=== PATIENT | female | born 1980 | race African-American/Black ===

== ENCOUNTER 2021-01-07 07:56 | Outpatient (CLI) | payer BC, SELFPAY ==
[2021-01-07 08:55] LABS: Anion Gap 11 mmol/L (8-16); Blood Urea Nitrogen 8 mg/dL (7-17); Calcium 9.7 mg/dL (8.4-10.2); Carbon Dioxide 26 mmol/L (22-30); Chloride 102 mmol/L (98-107); Estimated Glomerular Filt Rate > 60; Glucose 146 mg/dL (65-110); Potassium 3.7 mmol/L (3.4-5.0); Sodium 139 mmol/L (137-145)
== END 2021-01-07 07:57 | disposition home or self-care (01) ==
LOC: ANHSURGERY 08:02
PROVIDERS: Anesthesiology; Visit Provider Obstetrics & Gynecology
DX: Z01.812 Encounter for preprocedural laboratory examination (principal); D21.9 Benign neoplasm of connective and other soft tissue, unspecified
CPT/HCPCS: 36415; 80048; 86850; 86900; 86901

== ENCOUNTER → 2021-01-08 00:52 | Outpatient (CLI) | payer BC, SELFPAY ==
[2021-01-08 18:27] LABS: SARS-CoV-2 RNA PCR Negative
== END ==
PROVIDERS: Visit Provider Obstetrics & Gynecology
DX: Z01.812 Encounter for preprocedural laboratory examination (principal); Z20.822 Contact with and (suspected) exposure to COVID-19
CPT/HCPCS: C9803; U0003; U0005

== ENCOUNTER 2021-01-11 14:51 | Inpatient (IN) | payer BC, SELFPAY ==
[2021-01-05 10:52] VITALS: BMI 51.3
[2021-01-11] VITALS (22 sets, daily range): BP systolic 72–135; BP diastolic 30–84; PULSE 96–125; RESP 16–24; TEMP 35.8–36.8; O2SAT 98–100; BMI 51.0; BMI 51.3
--- NOTE | ~2021-01-11 | CT_ITS ---
EXAMINATION: CT abdomen pelvis wo con DATE: 01/12/2021 20:33 INDICATION: Abdominal pain. TECHNIQUE: Computed tomography (CT) of the abdomen and pelvis was performed without intravenous contr ast. Automated exposure control and iterative reconstruction technique were employed. The dose-length product was 1491.20 mGy-cm. COMPARISON: None. FINDINGS: The visualized portions of the lung bases demonstrate moderate atelectasis in the lower lob es. There is a small right pneumothorax. The heart size is normal. No pericardial effusion. There is a central venous catheter with tip in right atrium. There is diffuse hepatic steatosis. Density in th e gallbladder may be sludge or stones. The gallbladder is normal in size. The spleen, pancreas, adren al glands, and kidneys are normal. There are no dilated loops of bowel. The appendix is not visualize d. There is a small volume of free intraperitoneal gas, consistent with recent surgery. There is gas in the extraperitoneal space of Retzius. There is fat stranding in the pelvis, consistent with edema and inflammation. There is a small volume of hematoma in the surgical bed from hysterectomy. There is mild thoracolumbar spondylosis. IMPRESSION: 1. Small volume of pelvic hematoma status post hysterectomy. 2. Small right pneumothorax. Reviewed, dictated and finalized at location A.
--- NOTE | ~2021-01-11 | XR_ITS ---
EXAMINATION: XR chest 1V portable DATE: 01/12/2021 00:36 INDICATION: Right chest pain worsens with inspiration TECHNIQUE: frontal view of the chest was obtained. COMPARISON: None FINDINGS: All streaky atelectasis at the perihilar left midlung zone. No other airspace opacities, pulmonary ed aleisha, pleural effusion or pneumothorax. The cardiomediastinal silhouette is normal. Visualized bones a nd soft tissues are unremarkable. IMPRESSION: 1. Mild streaky atelectasis in the left midlung zone. No other acute cardiopulmonary disease. Reviewed, dictated and finalized at location A. IMPRESSION: 1. Mild streaky atelectasis in the left midlung zone. No other acute cardiopulm onary disease.
--- NOTE | ~2021-01-11 | XR_ITS ---
EXAMINATION: XR chest 1V portable DATE: 01/12/2021 21:27 INDICATION: Right pneumothorax. TECHNIQUE: A single frontal view of the chest was obtained. COMPARISON: Chest single view at 12:26 PM FINDINGS: There is mild atelectasis in the mid and lower lung zones. No pleural effusion or pneumotho rax. The heart size is normal. A left upper extremity peripherally inserted central venous catheter ( PICC) is seen with tip in the proximal right atrium. IMPRESSION: 1. No visible pneumothorax. 2. Mild atelectasis in the mid and lower lung zones. Reviewed, dictated and finalized at location A.
--- NOTE | ~2021-01-11 | XR_ITS ---
XR chest 1V portable DATE: 01/14/2021 12:59 INDICATION: Chest pain with inspiration, mostly on the right side TECHNIQUE: Portable AP chest on 01/14/2021 at 1247 hours COMPARISON: 01/2021 portable AP chest FINDINGS: There is bilateral lower lung infiltrate and/or atelectasis. No pleural effusion or pulmonary vascular congestion or pneumothorax. Left upper extremity PIC catheter tip overlies the superior vena cava near the superior cavoatrial ju nction. IMPRESSION: Bilateral lower lung infiltrate and/or atelectasis Reviewed, dictated and finalized at location B.
--- NOTE | 2021-01-11 01:42 | PM.IMHP ---
H&P: HPI History of Present Illness Date/Time: 01/11/21 01:42 Chief Complaint: fibroids Narrative: Lobito is a 40yo who presents for ALLISON/BS for large fibroid uterus. Unable to do EMB due to fibroids obscuring canal. Periods are not particularly heavy for her, but she does have pressure and discomfort from the large uterus. Feels like it is growing. Us showed large fibroid uterus, with fibroid up to 14cm. Review of Systems Review of Systems: All systems reviewed & are unremarkable except as noted in HPI and below PMFSH Past Medical History Medical History (Updated 01/11/21 @ 01:46 by Taylor Hall MD) Hypertension Obesity, morbid, BMI 50 or higher Social History Social History Smoking status: Never smoker Alcohol intake: never Substance use: never Living arrangements: with family Sexual Orientation (if Verbalized by the Patient): Straight or Heterosexual Spiritual care concerns: No Meds Home Medications and Allergies Home Medications Medication Instructions Recorded Confirmed Type hydrochlorothiazide 25 mg PO DAILY 01/05/21 01/05/21 History Allergies Allergy/AdvReac Type Severity Reaction Status Date / Time No Known Allergies Allergy Verified 01/05/21 10:49 Exam Const: General: no acute distress Other: morbidly obese Resp: Effort & Inspection: normal respiratory effort Auscultation: clear to auscultation bilaterally Cardio: Rate: regular rate Rhythm: regular rhythm GI: GI Palp: Yes Soft to palpation Extrem: General: normal to inspection Assessment and Plan Assessment and plan (1) Leiomyoma: Code(s): D21.9 - Benign neoplasm of connective and other soft tissue, unspecified Status: Acute Assessment and Plan: COnsented for ALLISON/BS. Ovaries to be left in. Pt aware of increased risks due to her obesity and HTN. Probable vertical incision. Discussed RBA, questions answered, consented. Will proceed.
[2021-01-11] MEDS: ACETAMINOPHEN 500 MG TABLET 1000 MG PO (06:55)
[2021-01-11] MEDS: KETOROLAC 15 MG/ML VIAL (*BKC) IV PUSH (06:55)
--- NOTE | 2021-01-11 06:55 | WPDANESEPPF ---
Anes - Initial Pre Proc Eval Procedure: Operation Date: 01/11/21 07:30 Proposed Procedures p Total Abdominal Hysterectomy, Bilateral Salpingo oophorectomy - Taylor Hall MD Date/Time: 01/11/21 06:55 Surgeon: Taylor Hall MD Pre Op Diagnosis: Leiomyoma Patient Data Age: 40 Gender: F Height: 1.65 m Weight: 139 kg Last Vital Signs Temp 96.5 F L 01/11/21 06:37 Pulse 96 01/11/21 06:37 Resp 20 01/11/21 06:37 BP 135/84 01/11/21 06:37 Pulse Ox 100 01/11/21 06:37 Allergies Allergy/AdvReac Type Severity Reaction Status Date / Time No Known Allergies Allergy Verified 01/11/21 06:33 Home Medications Medication Instructions Recorded Confirmed Type hydrochlorothiazide 25 mg PO DAILY 01/05/21 01/11/21 History Patient hx anesthesia problems: none Family hx anesthesia problems: none [facility] Past Medical History Medical History (Updated 01/11/21 @ 01:46 by Taylor Hall MD) Hypertension Obesity, morbid, BMI 50 or higher Social History Social History Smoking status: Never smoker Alcohol intake: never Substance use: never Living arrangements: with family Sexual Orientation (if Verbalized by the Patient): Straight or Heterosexual Spiritual care concerns: No Anes - Eval Final PreProcedure Day of Procedure 01/11/21 06:55 Patient weight: super morbidly obese Heart: regular rate and rhythm Lungs: clear to auscultation Airway: Mallampati scale class III Neurological: alert and oriented Last oral intake: >/= 8 hours ASA classification: IV Emergent: no Anesthetic plan: proceed Anesthesia type and monitoring: general and standard monitoring Informed Consent: The patient's anesthetic plan and its attendant risks and benefits were discussed with the patient/family/POA. Questions were solicited and answers provided to the satisfaction of the patient/family/POA.
[2021-01-11] MEDS: LACTATED RINGERS 1,000 ML 30 ML IV CONT ×3 (07:00→15:29)
--- NOTE | 2021-01-11 07:29 | WPDHPUPDATE1 ---
History and Physical Update Update Date/Time: 01/11/21 07:29 History and Physical has been reviewed, including an updated exam of the patient. There are NO changes in the patient's condition. Risks, benefits, and alternatives have been discussed and questions answered. Patient agrees to proceed with procedure.
[2021-01-11] MEDS: ceFAZolin 3 GM/D5W 100 ML 100 ML IVPB ×2 (07:33→12:05)
[2021-01-11 11:19] LABS: Hematocrit 33.9 % (37.0-47.0); Hemoglobin 11.2 g/dL (12.0-15.0); Mean Corpuscular Hemoglobin 26.9 pg (26-34); Mean Corpuscular Volume 81.3 fl (80-100); Platelet Count Result 244 k/mm3 (150-375); Red Blood Count 4.17 M/mm3 (4.2-5.4); Red Cell Distribution Width 14.9 % (11.5-14.5); White Blood Count 6.3 K/mm3 (4.5-10.0)
--- NOTE | 2021-01-11 11:40 | SUR.OPER ---
1105- Blood started infusing per anesthesia, Dr. Ramon. Unit Verified and identified by Brittaney Spain RN and Nino Logan RN. Vital signs charted in Anesthesia chart.
--- NOTE | 2021-01-11 14:14 | W.PM.PROC2 ---
Procedure Note - Detailed Date of Procedure 01/11/21 Pre-op Diagnosis Leiomyoma Post-op Diagnosis other (many necrotic and cystic fibroids) Procedure Performed Total abdominal hysterectomy with bilateral salpingectomy and right oophorectomy. Surgeon Taylor Hall MD [employer] Pit Worker Valerie Morlaes MD and DORA Waite Anesthesia general Indications very large fibroid uterus with pelvic pressure Findings Very large uterus with multiple fibroids, many greater than 8cm. SOme cystic feeling. The largest fibroid reached up to the liver edge and the uterus was twisted 90 degrees. Description of Procedure The patient was taken to the operating room and placed in supine position. She received general anesthesia and a jackson catheter was placed. She was prepped and draped in sterile fashion, including a betadine vaginal prep. Due to the size of the uterus, a vertical incision was made from just below the umbilicus down to 2cm above the pubic symphysis. The incision was carried down sharply and with Bovie through the subcutaneous tissue and fascia. The rectus muscles were and the peritoneum was bluntly entered. The findings noted above were encountered. The fibroids distorted her normal anatomy severely. Due to the size and twisted position of the uterus, the incision was extended around the umbilicus and about 4cm above. This allowed us to exteriorize the uterus through the incision and untwist it to put it in somewhat anatomical position. Bilateral tubes and ovaries were noted to be normal. A normal liver and appendix were also felt and seen. The left round ligament was clamped, cut and suture ligated and the broad ligament was incised anteriorly and posteriorly, over the fibroids that it contained. Similarly, on the right, the round ligament was clamped, cut and suture ligated. The broad ligament was incised to the level it could be visualized. The left uteroovarian ligament was clamped, cut, and ligated, and the tube isolated from the ovary as well. At this point, Dr. Morales was called to assist. On the right, the uteroovarian ligament was clamped, cut and ligated as well. Due to bleeding which was not controlled by 3 figure of eight sutures on the ovary, the decision was made to remove the right ovary. After isolation and visualization of the ureter, the right infundibulopelvic ligament was clamped, cut, and ligated. At this point we skeletonized in the presumed area of the uterine vessels. On both sides we were able to locate and follow the ureter along its entire pelvic course. The bladder flap was created, but the bladder was densely adherent to a fibroid in the lower uterine segment. During mobilizing of the bladder off the fibroid, an inadvertent cystotomy was made. This cystotomy was used to then assist in locating the margins of the border to dissect it off of the fibroid and cervix. Due to inability to visualize deep in the pelvis because of the size of the uterus and its masses, we decided the course of action needed to be amputation of the fibroids and uterine tissue to obtain visibility. Using a combination of Bovie cautery in avascular areas of necrotic tissue, and clamping, cutting and ligation, we removed several of the larger fibroid sections. All of the fibroids appeared cystic and necrotic. Once a majority of the fibroid tissue was removed, we were able to visualize the pelvis and the cervix. The uterine arteries were noted and skeletonized bilaterally. They were then clamped, cut, and suture ligated. Using straight Marissa clamps, the tissue surrounding the cervix was sequentially clamped, cut, and ligated until the bottom of the cervix was noted. The cervix was then amputated and the cuff closed with a running locking suture of 0-vicryl. All pedicles were inspected. Several interrupted sutures were placed for hemostasis, taking care to avoid the ureters. The cystotomy was repaired in running layers with 3-0 vicryl
[2021-01-11] MEDS: HYDROmorphone HCL INJ (*CRX) 1 MG/ML SYR 0.25 MG IV PUSH ×4 (14:32→15:42)
--- NOTE | 2021-01-11 14:32 | SUR.OPER ---
1345- second unit of RBC transfusing, Rocio Day CRNA. Vital signs in anesthesia record. Verified and Identified by Brittaney Spain Rn and Melissa Carvalho RN.
[2021-01-11 14:46] LABS: Hematocrit 30.3 % (37.0-47.0); Hemoglobin 9.7 g/dL (12.0-15.0); Mean Corpuscular Hemoglobin 28.4 pg (26-34); Mean Corpuscular Volume 88.9 fl (80-100); Mean Platelet Volume 9.6 fl (7.4-10.4); Platelet Count Result 180 k/mm3 (150-375); Red Blood Count 3.41 M/mm3 (4.2-5.4); Red Cell Distribution Width 15.5 % (11.5-14.5); White Blood Count 20.4 K/mm3 (4.5-10.0)
[2021-01-11] MEDS: PHENYLEPHRINE 1,000 MCG/10 ML SYRINGE 100 MCG IV PUSH (14:48)
[2021-01-11] MEDS: LACTATED RINGERS 1,000 ML 999 ML IV CONT (14:53)
[2021-01-11 14:58] LABS: INR 1.5; Prothrombin Time 17.6 Seconds (11.1-14.7)
[2021-01-11 14:59] LABS: Partial Thromboplastin Time 25.9 SECONDS (22.3-36.8)
--- NOTE | 2021-01-11 15:55 | SUR.PHASEI ---
1430 DR OCASIO AT BEDSIDE- ORDERS RECEIVED FOR LABS. 1445 DR STEIN AT BEDSIDE- AWARE OF HYPOTENSION- ORDERS RECEIVED TO GIVE 1000ML LR BOLUS & GIVE PHENYLEPHRINE PRN. 1505 DR ARMSTRONG AT BEDSIDE- ASSESSING PT. AWARE OF CBC RESULTS. 1528 DR STEIN AT BEDSIDE- AWARE OF CBC, PT/INR, & PTT RESULTS.
[2021-01-11] MEDS: CLINDAMYCIN 600 MG/D5W 50 ML 600 MG/50 ML PIGGYBACK 100 MG IVPB (18:09)
[2021-01-11] MEDS: HYDROcodone/acetaminophen (*CRX) 10-325 MG TABLET 1 TAB PO (18:28)
[2021-01-11 18:31] LABS: Hematocrit 34.9 % (37.0-47.0); Hemoglobin 11.2 g/dL (12.0-15.0); Mean Corpuscular HGB Conc 32.1 g/dl (32-36); Mean Corpuscular Hemoglobin 28.4 pg (26-34); Mean Corpuscular Volume 88.4 fl (80-100); Mean Platelet Volume 10.2 fl (7.4-10.4); Platelet Count Result 233 k/mm3 (150-375); Red Blood Count 3.95 M/mm3 (4.2-5.4); Red Cell Distribution Width 15.2 % (11.5-14.5); White Blood Count 37.9 K/mm3 (4.5-10.0)
[2021-01-11 18:39] LABS: Estimated CRCL calculation 77 ml/min; Estimated Glomerular Filt Rate 60
--- NOTE | 2021-01-11 18:44 | ADMGEN ---
This patient, Lobito Martin, was admitted to IMU Room 200-01 on 01/11/21 at 1635. Patient/family oriented to hospital policies and general routines including ID bracelet, bed and alarms, visiting hours, pain management, procedures, bathroom and other care routines, personal items, smoking policy, room service/diet, and visiting hours. Information on how to activate the Rapid Response Team has been discussed. Patient/Family are encouraged to report perceived risks to care and to ask questions if they do not understand what they are told or what they should do.
[2021-01-11 19:13] LABS: Band Neutrophils Percent 7 % (0-6); Lymphocytes Absolute Manual 0.75 K/mm3 (1.1-4.5); Monocytes Absolute Manual 0.75 K/mm3 (0.1-0.90); Monocytes Percent Manual 2 % (3-9); Neutrophils Absolute Manual 36.38 K/mm3 (1.7-7.2); Neutrophils Percent Manual 89 % (46-73); Platelet Estimate Adequate (Adequate); Total Cells Counted 100
[2021-01-11 19:14] LABS: Poikilocytosis 1+ (NORMAL)
--- NOTE | 2021-01-11 20:14 | PC.NURSE ---
Spoke with Dr. Hall approx 194 to update on pt condition. Bolus is currently transfusing. Now going to do strict I&O for 2hrs and monitor BP. Will update accordingly.
--- NOTE | 2021-01-11 20:17 | PC.NURSE ---
1899 - Notified Dr Hall of pt's BP in 70's and 80's with HR in the 120's. No other signs or symptoms. Orders for 500 ml bolus of NS with 200 ml/hr following bolus.
[2021-01-11] MEDS: SODIUM CHLORIDE 0.9% IV 1,000 ML 200 ML IV CONT (20:19)
[2021-01-11] MEDS: SODIUM CHLORIDE 0.9% IV 1,000 ML 999 ML IV CONT ×2 (20:19→22:40)
[2021-01-11] MEDS: GENTAMICIN SULFATE INJ 450 MG in DEXTROSE 5% 100 ML 100 MG IVPB (20:23)
--- NOTE | 2021-01-11 20:32 | PC.NURSE ---
1814 - Dr Hall called to check on patient. Orders for NS 200 ml/hr given. She will call shift stacker to check on her again.
--- NOTE | 2021-01-11 21:50 | PC.NURSE ---
Addendum entered by Yael Escoto RN 01/12/21 00:49: This patient, Lobito Martin, was received from 200 on 01/11/21 at 2100. Patient/family oriented to unit policies and routines Original Note: This patient, Lobito Martin, was received from 200 on 01/11/21 at 2150. Patient/family oriented to unit policies and routines
[2021-01-11 22:34] LABS: Hemoglobin 9.5 g/dL (12.0-15.0)
[2021-01-11 22:44] LABS: Anion Gap 11 mmol/L (8-16); Blood Urea Nitrogen 13 mg/dL (7-17); Carbon Dioxide 18 mmol/L (22-30); Chloride 108 mmol/L (98-107); Estimated CRCL calculation 78 ml/min; Estimated Glomerular Filt Rate 60; Glucose 180 mg/dL (65-110); Potassium 5.5 mmol/L (3.4-5.0); Sodium 137 mmol/L (137-145)
[2021-01-11 22:45] LABS: INR 1.2; Lactic Acid Reflex 8.5 mmol/L (0.7-2.1); Prothrombin Time 14.8 Seconds (11.1-14.7)
[2021-01-12] VITALS (24 sets, daily range): BP systolic 98–135; BP diastolic 53–83; PULSE 108–131; RESP 16–34; TEMP 36.5–37.4; O2SAT 93–100
--- NOTE | 2021-01-12 | PC.NURSE ---
Patient complains of right chest pain, worse upon palpation and with deep breathing. Dr. Paez notified. Orders for EKG and CXR obtained. Patient refuses pain medication at this time. No acute distress noted. Respirations easy on room air.
--- NOTE | 2021-01-12 00:03 | ECG_ITS ---
Measurements Intervals [place] Rate: 118 P: 34 OR: 159 QRS: -7 QRSD: 75 T: 12 QT: 323 QTc: 454 Interpretive Statements SINUS TACHYCARDIA BORDERLINE R WAVE PROGRESSION, ANTERIOR LEADS BORDERLINE T WAVE ABNORMALITY- INFERIOR LEADS ABNORMAL ECG Electronically Signed On 01-12-2021 6:06:12 CDT by Óscar Rod D.O.
[2021-01-12] MEDS: SODIUM BICARBONATE 8.4% 150 MEQ in WATER, STERILE FOR INJECTION 950 ML 125 MEQ IV CONT ×2 (00:13→09:39)
[2021-01-12] MEDS: CLINDAMYCIN 600 MG/D5W 50 ML 600 MG/50 ML PIGGYBACK 100 MG IVPB ×2 (00:25→09:27)
--- NOTE | 2021-01-12 00:26 | PM.IMCN ---
Assessment and Plan Assessment and plan (1) Postoperative hemorrhagic shock: Qualifiers: Encounter type: initial encounter Qualified Code(s): T81.19XA - Other postprocedural shock, initial encounter Code(s): T81.19XA - Other postprocedural shock, initial encounter Status: Acute (2) History of total abdominal hysterectomy: Onset Date: 01/11/21 Code(s): Z90.710 - Acquired absence of both cervix and uterus Status: Acute Additional Plan The patient and postoperative hemorrhagic shock. Her hemodynamics status has stabilized after 3rd unit of packed red blood cells and a 3rd L of postoperative fluids. The patient had had a total of 8 L of isotonic fluids between intraoperative fluids and postoperative fluids. Patient has been moved to the ICU. Retail Manager In Training has been consulted. The patient did have significant lactic acidosis on labs however suspect that this is in part due to the blood sample being obtained from the IV catheter instead of from had direct venous draw. Will repeat lactic acid with a.m. labs. Repeat CBC and electrolyte panel been ordered. Central line was attempted but was unsuccessful. Please see procedure note. 45 minutes was spent in critical care activities in exclusion of procedures. This case had a high probability of a clinically significant, sudden, or life threatening deterioration of this patient's condition which required my full and direct attention, intervention and personal management. HPI Data of Consult Consult date: 01/11/21 Requesting Physician: Taylor Hall MD Primary Care Provider: PHYSICIAN NOT ON STAFF Consult Narrative Narrative: Lobito Martin is a 40 year old female with a past medical history of hypertension in uterine fibroids had a complicated total abdominal hysterectomy with bilateral salpingectomy and right oophorectomy with a large amount of blood loss 01/11/2021. The patient had been admitted to the IMU for close monitoring due to her large amount of blood loss. The patient had received 1 L fluid bolus and was part way through a 2nd L fluid bolus and had received 2 units of packed red blood cells. Nursing staff called me to notify me of the consult as the patient was hypotensive with blood pressures in the 70s. I recommended the patient be transferred to the ICU in that the comfort station supervisor be consulted. I moved patient to the ICU and attempted to place a femoral line but was not able to visualized the femoral vein due to body habitus. Her internal jugular jugular vein was small and collapsed quickly he was poorly visualized due to body habitus is well. Subsequently tried a right subclavian and could obtained flash of blood but could not maintain the flash as the needle was not long enough. Patient was given an additional 1.5 L of fluid bolus after which her brought pressures had actually stabilized. An additional 30 unit of packed red blood cells was ordered as stat H&H was obtained. Her hemoglobin did return to g lower than previous values. Her lactic acid returned at 8.5 but the blood was obtained from patient's IV catheter that had been placed earlier in the day and was slow to aspirate from the IV site. The patient had an estimated blood loss of 3 L due to her large uterus with many fibroids and significant blood supply. And she received 5 L of fluids with 2 units of blood given through the course of surgical procedure. Patient evidently had cystotomy which was repaired intraoperatively. Review of Systems Review of Systems: 12 systems were reviewed with pertinent positives and negatives per HPI. Except as documented in the HPI, all other systems were reviewed and are negative. [facility] Past Medical History Medical History (Updated 01/12/21 @ 00:42 by Ashanti Paez DO) Hypertension Obesity, morbid, BMI 50 or higher Surgical History Surgical History (Updated 01/12/21 @ 00:42 by Ashanti Paez DO) History of right oophorectomy (
[2021-01-12 01:33] LABS: Reflex Lactic Acid Yes or No Add Lactic
[2021-01-12 03:21] LABS: Hematocrit 22.6 % (37.0-47.0); Hemoglobin 7.6 g/dL (12.0-15.0); Mean Corpuscular HGB Conc 33.6 g/dl (32-36); Mean Corpuscular Hemoglobin 28.7 pg (26-34); Mean Corpuscular Volume 85.3 fl (80-100); Mean Platelet Volume 10.4 fl (7.4-10.4); Platelet Count Result 173 k/mm3 (150-375); Red Blood Count 2.65 M/mm3 (4.2-5.4); Red Cell Distribution Width 15.1 % (11.5-14.5); White Blood Count 26.2 K/mm3 (4.5-10.0)
[2021-01-12 03:31] LABS: INR 1.2
[2021-01-12 03:32] LABS: Partial Thromboplastin Time 27.7 SECONDS (22.3-36.8)
[2021-01-12 03:33] LABS: Anion Gap 6 mmol/L (8-16); Blood Urea Nitrogen 15 mg/dL (7-17); Calcium 6.6 mg/dL (8.4-10.2); Carbon Dioxide 19 mmol/L (22-30); Chloride 108 mmol/L (98-107); Estimated CRCL calculation 78 ml/min; Estimated Glomerular Filt Rate 60; Glucose 158 mg/dL (65-110); Potassium 4.5 mmol/L (3.4-5.0); Sodium 133 mmol/L (137-145)
[2021-01-12] MEDS: fentaNYL CITRATE INJ (*CRX) 100 MCG/2 ML VIAL 25 MCG IV PUSH ×2 (03:38→06:11)
--- NOTE | 2021-01-12 07:59 | PM.GYNPNOP ---
DENTAL ASSISTING INSTRUCTOR - A/P Assessment and plan (1) History of total abdominal hysterectomy: Onset Date: 01/11/21 Code(s): Z90.710 - Acquired absence of both cervix and uterus Status: Acute Assessment and Plan: increase fentanyl for pain control once H/H stable, will start lovenox for 4 weeks postop at increased risk of infection due to morbid obesity, excessive blood loss, long operating time. Will continue antibiotics. (2) Postoperative hemorrhagic shock: Qualifiers: Encounter type: initial encounter Qualified Code(s): T81.19XA - Other postprocedural shock, initial encounter Code(s): T81.19XA - Other postprocedural shock, initial encounter Status: Acute Assessment and Plan: Hgb 7.6- this is more in line with blood loss from surgery. suspect the 11.2 post op was incorrect. Will transfuse 2 more units. continue IVF. BPs improving, UOP 250cc/8 hours. Serial H and H. If count continues to drop, will do CT abdomen/pelvis to rule out active bleeding. Discussed entire POC with patient, RN, manager security and safety, and Dr. Morales. I can be reached at [phone] until 4pm today and then Dr Morales can be reached at [phone]. (3) Complication of cystostomy: Code(s): N99.518 - Other cystostomy complication Status: Acute Assessment and Plan: [place] in for 1 week, discussed with pt. Postoperative Procedures: Procedures Operation Date: 01/11/21 07:30 Actual Procedure Side Surgeon p Total Abdominal Hysterectomy, Bilateral Salpingectomy, Right Oophorectomy Bilateral Taylor Hall MD Time Spent With Patient Time: Total time spent is 30 min greater than 50% in coordination of care (as documented) at patient's floor/unit and/or counseling patient: Time with patient: 25 - 35 minutes DENTAL ASSISTING INSTRUCTOR- PN:Subj Post-Op Subjective Date/time seen: 01/12/21 07:59 Interval history: Lobito reports pain, mainly at site of central line attempts, but some abdominal. Exhausted. Transferred to ICU later yesterday for low BPs, after copious fluids and 1 more unit of blood UOP and BPs improved. Still tachycardic and relatively low BPs given her hypertension. Exam Const: General: acute distress Other: appears moderately uncomfortable Cardio: Rate: tachycardic GI: Other: appropriately tender, incision remains bandaged with no additional strikethrough since yesterday in PACU Urinary Catheter: Urinary Catheter: patent and draining and urine clear Neuro: General: oriented to person, oriented to place, oriented to time and moves all extremities Psych: Mental Status: mental status grossly normal Affect: normal affect DENTAL ASSISTING INSTRUCTOR - PN: Obj Data Vital Signs Vital Signs: Vital Signs - 24 hr 01/11/21 14:15 01/11/21 14:30 01/11/21 14:45 Temperature 98.3 F Pulse Rate 116 H 117 H 106 H Respiratory Rate 18 18 18 Blood Pressure 111/72 111/69 72/30 L Pulse Oximetry 100 100 100 01/11/21 15:00 01/11/21 15:15 01/11/21 15:30 Temperature Pulse Rate 103 H 105 H 111 H Respiratory Rate 18 16 16 Blood Pressure 113/77 110/75 113/72 Pulse Oximetry 100 100 100 01/11/21 15:45 01/11/21 16:00 01/11/21 16:15 Temperature 97.4 F L Pulse Rate 111 H 114 H 108 H Respiratory Rate 18 16 18 Blood Pressure 104/65 106/75 99/80 L Pulse Oximetry 100 100 100 01/11/21 16:35 01/11/21 16:40 01/11/21 16:50 Temperature 97.6 F 97.6 F Pulse Rate 110 H 109 H 118 H Respiratory Rate 18 16 Blood Pressure 97/70 L 105/65 Pulse Oximetry 100 99 98 01/11/21 17:20 01/11/21 17:50 01/11/21 18:20 Temperature 97.4 F L 97.6 F 97.5 F L Pulse Rate 125 H 124 H 125 H Respiratory Rate 22 H 20 20 Blood Pressure 99/72 L 101/63 90/51 L Pulse Oximetry 99 100 99 01/11/21 18:40 01/11/21 18:50 01/11/21 19:51 Temperature Pulse Rate 112 H Respiratory Rate Blood Pressure 83/50 L 79/54 L 74/34 L Pulse Oximetry 01/11/21 20:31 01/11/21 22:00 01/11/21 23:19 Temperature Pulse Rate 125 H Respiratory Rate 24 H Bloo
[2021-01-12] MEDS: LIDOCAINE HCL 1% PF INJ 5 ML VIAL INFILTRATE (08:30)
[2021-01-12] MEDS: MAGNESIUM SULFATE 3GM/D5W100ML 3 GM/100 ML BAG IVPB (09:23)
[2021-01-12] MEDS: HYDROcodone/acetaminophen (*CRX) 10-325 MG TABLET 1 TAB PO ×2 (09:33→17:35)
[2021-01-12] MEDS: fentaNYL CITRATE INJ (*CRX) 100 MCG/2 ML VIAL 50 MCG IV PUSH ×4 (09:46→22:24)
[2021-01-12 10:18] LABS: Gentamicin Random 2.8 ug/mL (5.0-12.0)
--- NOTE | 2021-01-12 11:17 | WPDANESPN ---
Anes - Prog Note Post-Op Date/Time: 01/12/21 11:17 Cardiovascular status: normal Respiratory status: normal Airway patency: baseline Mental status: baseline Post-Op hydration status: other (Management per ICU team, currently receiving pRBCs) Vital Signs: Last Vital Signs Temp 36.7 C 01/12/21 10:32 Pulse 116 H 01/12/21 10:32 Resp 25 H 01/12/21 10:32 BP 113/70 01/12/21 10:32 Pulse Ox 97 01/12/21 10:32 Pain Score (VAS): 08/18 I/O: Intake & Output 01/11/21 01/12/21 01/12/21 23:59 07:59 15:59 Intake Total 578 831 7891 Output Total 275 Balance 370 29 8423 Laboratory Tests 01/12/21 03:14 01/12/21 03:14 01/07/21 01/11/21 01/11/21 08:10 10:21 14:39 WBC 6.3 20.4 H RBC 4.17 L 3.41 L Hgb 11.2 L 9.7 L Hct 33.9 L 30.3 L MCV 81.3 88.9 D MCH 26.9 28.4 D MCHC 33.0 32.0 RDW 14.9 H 15.5 H Plt Count 244 180 MPV 10.0 9.6 Immature Gran % (Auto) Neut % (Auto) Lymph % (Auto) [place] % (Auto) Eos % (Auto) Baso % (Auto) Lymph # (Auto) [place] # (Auto) Eos # (Auto) Baso # (Auto) Abs Immat Gran (auto) Absolute Neuts (auto) Absolute Nucleated RBC Total Counted Neutrophils % (Manual) Band Neutrophils % Lymphocytes % (Manual) Monocytes % (Manual) Nucleated RBC % Abs Neuts (Manual) Abs Lymphs (Manual) Abs Monocytes (Manual) Platelet Estimate Poikilocytosis PT INR APTT Sodium Potassium Chloride Carbon Dioxide Anion Gap BUN Creatinine Estim Creat Clear Calc Estimated GFR Glucose Lactic Acid Calcium Magnesium Random Gentamicin Blood Type O Positive Antibody Screen TNP Crossmatch See Detail 01/11/21 01/11/21 01/11/21 14:39 18:25 18:25 WBC 37.9 H RBC 3.95 L Hgb 11.2 L Hct 34.9 L MCV 88.4 MCH 28.4 MCHC 32.1 RDW 15.2 H Plt Count 233 MPV 10.2 Immature Gran % (Auto) Not Reportable Neut % (Auto) Not Reportable Lymph % (Auto) Not Reportable [place] % (Auto) Not Reportable Eos % (Auto) Not Reportable Baso % (Auto) Not Reportable Lymph # (Auto) Not Reportable [place] # (Auto) Not Reportable Eos # (Auto) Not Reportable Baso # (Auto) Not Reportable Abs Immat Gran (auto) Not Reportable Absolute Neuts (auto) Not Reportable Absolute Nucleated RBC Not Reportable Total Counted 100 Neutrophils % (Manual) 89 H Band Neutrophils % 7 H Lymphocytes % (Manual) 2.0 L Monocytes % (Manual) 2 L Nucleated RBC % Not Reportable Abs Neuts (Manual) 36.38 H Abs Lymphs (Manual) 0.75 L Abs Monocytes (Manual) 0.75 Platelet Estimate Adequate Poikilocytosis 1+ PT 17.6 H INR 1.5 APTT 25.9 Sodium Potassium Chloride Carbon Dioxide Anion Gap BUN Creatinine 1.20 H Estim Creat Clear Calc 77 Estimated GFR 60 Glucose Lactic Acid Calcium Magnesium Random Gentamicin Blood Type Antibody Screen Crossmatch 01/11/21 01/11/21 01/11/21 22:21 22:21 22:21 WBC RBC Hgb 9.5 L Hct 30.0 L MCV MCH MCHC RDW Plt Count MPV Immature Gran % (Auto) Neut % (Auto) Lymph % (Auto) [place] % (Auto) Eos % (Auto) Baso % (Auto) Lymph # (Auto) [place] # (Auto) Eos # (Auto) Baso # (Auto) Abs Immat Gran (auto) Absolute Neuts (auto) Absolute Nucleated RBC Total Counted Neutrophils % (Manual) Band Neutrophils % Lymphocytes % (Manual) Monocytes % (Manual) Nucleated RBC % Abs Neuts (Manual) Abs Lymphs (Manual) Abs Monocytes (Manual) Platelet Estimate Poikilocytosis PT 14.8 H INR 1.2 APTT 20.0 L Sodium 137 Potassium 5.5 H Chloride 108 H Carbon Dioxide 18 L Anion Gap 11 BUN 13 D Creatinine 1.20 H Estim Creat Clear Calc 78 Estimated GFR 60 Glucose 180 H Lactic Aci
--- NOTE | 2021-01-12 11:27 | WPDCNINT ---
Assessment and Plan Assessment and plan (1) Postoperative hemorrhagic shock: Qualifiers: Encounter type: initial encounter Qualified Code(s): T81.19XA - Other postprocedural shock, initial encounter Code(s): T81.19XA - Other postprocedural shock, initial encounter Status: Acute Assessment and Plan: Postoperative patient dropped her hemoglobin,, received 2 units of packed RBCs in the OR due to EBL of 3000 mL -this morning hemoglobin dropped to 7.6, discussed with OBGYN, and Dr. Hall recommended 2 units of packed RBCs. -patient also received IV fluid boluses last evening for hypotension, pressures have been stable -continue to monitor closely -lactic acid improving (2) History of total abdominal hysterectomy: Onset Date: 01/11/21 Code(s): Z90.710 - Acquired absence of both cervix and uterus Status: Acute Assessment and Plan: On 01/11/2021 patient had an elective Total abdominal hysterectomy with bilateral salpingectomy and right oophorectomy for fibroid uterus. -EBL approximately 3000 ml -OBGYN following closely (3) Anemia due to acute blood loss: Code(s): D62 - Acute posthemorrhagic anemia Status: Acute Assessment and Plan: Anemia due to blood loss post surgery as above -received 2 units of packed RBCs in the OR on 01/11/2021 -currently receiving 2 more units of packed RBCs in the ICU -check H/H q.6 hours and transfuse as required -if hemoglobin continues to drop despite of transfusion, will obtain CT scan of the abdomen and pelvis. This was discussed with OBGYN (4) DVT prophylaxis: Code(s): Z29.9 - Encounter for prophylactic measures, unspecified Status: Acute Assessment and Plan: SCDs -hold Lovenox for now since patient is anemic and dropped her hemoglobin post surgery (5) Dietary counseling and surveillance: Code(s): Z71.3 - Dietary counseling and surveillance Status: Acute Assessment and Plan: Clear liquid diet for now Additional Plan Discussed with patient updated with her condition and plan of care. I answered all questions. OBGYN Dr Hall was also present at the bedside, patient is aware of the plan of care. She will be receiving 2 units of packed RBCs, will be rechecking her H&H every 6 hours. In has venous insufficiency so PICC line will be inserted. Code status: Full code Critical care time spent: 46 minute This dictation may have been done utilizing a voice recognition system. Attempts have been made to correct errors. However, there may be uncorrected grammatical, spelling, and recognition errors present. Due to a high probability of clinically significant, life threatening deterioration, the patient required my highest level of preparedness to intervene emergently and I personally spent this critical care time directly and personally managing the patient. This critical care time included obtaining a history; examining the patient; pulse oximetry; ordering and review of studies; arranging urgent treatment with development of a management plan; evaluation of patient's response to treatment; frequent reassessment; and discussions with other providers. It was exclusive of separately billable procedures and treating other patients and teaching time. 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 Patient had heavy periods and also felt pressure and discomfort from the large uterus. Ultrasound showed fibroid uterus with fibroid up to 14 cm. On 01/11/2021 patient und
[2021-01-12 14:34] LABS: Hematocrit 24.8 % (37.0-47.0); Hemoglobin 8.3 g/dL (12.0-15.0)
[2021-01-12] MEDS: CENTRAL LINE FLUSH 10 ML IV PUSH ×2 (14:56→22:25)
[2021-01-12 19:45] LABS: Hematocrit 23.2 % (37.0-47.0); Hemoglobin 7.9 g/dL (12.0-15.0)
[2021-01-12] MEDS: SODIUM CHLORIDE 0.9% IV 250 ML 30 ML IV CONT (20:46)
[2021-01-12] MEDS: TUBING, BLOOD PLUM PUMP TUBING 2 EACH XX (20:46)
[2021-01-12] MEDS: GENTAMICIN SULFATE INJ 450 MG in DEXTROSE 5% 100 ML 100 MG IVPB (20:46)
[2021-01-12] MEDS: HYDROcodone/acetaminophen (*CRX) 5-325 MG TABLET 1 TAB PO (22:24)
--- NOTE | 2021-01-12 22:27 | WPDPROCEDUR ---
Procedures Central Line Placement Right SC: Central Line Date: 01/10/21 Central Line Time: 21:50 Discussed w/ the patient/family/POA,the placement of a central venous catheter, including its clinical necessity/indication & associated potential risks, benifits and alternatives.: Yes The patient/family/POA understand(s) and acknowledge(s) the need to proceed with central venous catheter insertion as an important element of the patient's clinical management.: Yes Time Out Performed: Yes Patient Position: trendelenburg Patient placed on monitor/pulse ox: Yes Provider Prep: mask, sterile gown, sterile gloves, Max. sterile barrier precautions, cap and hand hygiene with conventional soap/water or alcohol based hand rub Central line prep: 2% Chlorhexidine scrub Local anesthesia used: lidocaine 1% Amount of anesthesia used (ml): 10 Central line lumen inserted: triple [place]: 7 Additional comments: Unsuccessful central line attempt due to patient's body habitus. The patient's femoral site and IJ site were assessed as well I was unable to visualize femoral vein. I could visualize the IJ but with collapse with each heartbeat. Subsequently a right subclavian was attempted which was compromised due to patient's obesity and body habitus. I would give return of small on a venous blood but a Chest x-ray postprocedure personally reviewed did not demonstrate pneumothorax.
[2021-01-12] MEDS: SODIUM BICARBONATE 8.4% 150 MEQ in WATER, STERILE FOR INJECTION 950 ML 75 MEQ IV CONT (23:31)
[2021-01-13] VITALS (12 sets, daily range): BP systolic 93–130; BP diastolic 57–83; PULSE 104–122; RESP 16–29; TEMP 36.4–37.9; O2SAT 92–98
[2021-01-13 01:13] LABS: Hematocrit 25.4 % (37.0-47.0); Hemoglobin 8.5 g/dL (12.0-15.0)
[2021-01-13] MEDS: HYDROcodone/acetaminophen (*CRX) 10-325 MG TABLET 1 TAB PO (04:40)
[2021-01-13] MEDS: CENTRAL LINE FLUSH 10 ML IV PUSH ×3 (04:53→21:07)
[2021-01-13 05:16] LABS: Estimated CRCL calculation 129 ml/min; Estimated Glomerular Filt Rate > 60
[2021-01-13 08:12] LABS: Alanine Aminotransferase 73 U/L (4-35); Albumin Level 2.1 g/dL (3.5-5.1); Alkaline Phosphatase 35 U/L (38-126); Anion Gap 1 mmol/L (8-16); Aspartate Amino Transferase 126 U/L (14-36); Bilirubin,Total 0.5 mg/dL (0.2-1.3); Blood Urea Nitrogen 10 mg/dL (7-17); Calcium 6.4 mg/dL (8.4-10.2); Carbon Dioxide 30 mmol/L (22-30); Chloride 98 mmol/L (98-107); Estimated CRCL calculation 129 ml/min; Estimated Glomerular Filt Rate > 60; Glucose 126 mg/dL (65-110); Potassium 3.4 mmol/L (3.4-5.0); Sodium 129 mmol/L (137-145)
[2021-01-13 08:26] LABS: Hematocrit 24.5 % (37.0-47.0)
[2021-01-13 08:37] LABS: Lactic Acid Reflex 0.7 mmol/L (0.7-2.1); Magnesium 1.9 mg/dL (1.6-2.3); Phosphorus 1.8 mg/dL (2.5-4.5)
[2021-01-13 09:02] LABS: Gentamicin Random 1.5 ug/mL (5.0-12.0)
[2021-01-13 09:07] LABS: Basophils Percent Auto 0.2 % (0.2-1.2); Eosinophils Percent Auto 0.1 % (0-4.4); Hematocrit 24.4 % (37.0-47.0); Hemoglobin 8.1 g/dL (12.0-15.0); Immature Granulocyte Absolute 0.09 K/mm3 (0.00-0.031); Immature Granulocyte Percent A 0.7 % (0-0.5); Lymphocytes Absolute Auto 1.74 K/mm3 (0.9-3.2); Lymphocytes Percent Auto 13.5 % (18.3-44.2); Mean Corpuscular HGB Conc 33.2 g/dl (32-36); Mean Corpuscular Hemoglobin 29.6 pg (26-34); Mean Corpuscular Volume 89.1 fl (80-100); Mean Platelet Volume 10.3 fl (7.4-10.4); Monocytes Absolute Auto 1.4 K/mm3 (0.1-0.6); Monocytes Percent Auto 10.5 % (2.6-8.5); Neutrophils Absolute Auto 9.7 K/mm3 (1.3-6.7); Nucleated Red Blood Cells Perc 0.2 % (0.0-0.2); Platelet Count Result 135 k/mm3 (150-375); Red Blood Count 2.74 M/mm3 (4.2-5.4); Red Cell Distribution Width 15.1 % (11.5-14.5); White Blood Count 12.9 K/mm3 (4.5-10.0)
[2021-01-13] MEDS: HYDROcodone/acetaminophen (*CRX) 5-325 MG TABLET 1 TAB PO ×3 (09:21→23:25)
--- NOTE | 2021-01-13 12:46 | WPDINTPN ---
Progress Note: A&P Assessment and Plan (1) Postoperative hemorrhagic shock: Qualifiers: Encounter type: initial encounter Qualified Code(s): T81.19XA - Other postprocedural shock, initial encounter Code(s): T81.19XA - Other postprocedural shock, initial encounter Status: Acute Assessment and Plan: Postoperative patient dropped her hemoglobin,, received 2 units of packed RBCs in the OR due to EBL of 3000 mL -this morning hemoglobin dropped to 7.6, discussed with OBGYN, and Dr. Hall recommended 2 units of packed RBCs. -patient also received IV fluid boluses last evening for hypotension, pressures have been stable -continue to monitor closely -lactic acid resolved (2) History of total abdominal hysterectomy: Onset Date: 01/11/21 Code(s): Z90.710 - Acquired absence of both cervix and uterus Status: Acute Assessment and Plan: On 01/11/2021 patient had an elective Total abdominal hysterectomy with bilateral salpingectomy and right oophorectomy for fibroid uterus. -EBL approximately 3000 ml -OBGYN following closely -CT scan of the abdomen and pelvis done on 01/12/2021: Small volume of pelvic hematoma status post hysterectomy. Small right pneumothorax (3) Anemia due to acute blood loss: Code(s): D62 - Acute posthemorrhagic anemia Status: Acute Assessment and Plan: Anemia due to blood loss post surgery as above -received 2 units of packed RBCs in the OR on 01/11/2021 -currently receiving 2 more units of packed RBCs in the ICU -check H/H q.6 hours and transfuse as required -if hemoglobin continues to drop despite of transfusion, will obtain CT scan of the abdomen and pelvis. This was discussed with OBGYN -patient received an additional unit of packed RBC overnight. -hemoglobin stable this morning, (4) DVT prophylaxis: Code(s): Z29.9 - Encounter for prophylactic measures, unspecified Status: Acute Assessment and Plan: SCDs -hold Lovenox for now since patient is anemic and dropped her hemoglobin post surgery (5) Dietary counseling and surveillance: Code(s): Z71.3 - Dietary counseling and surveillance Status: Acute Assessment and Plan: Will increase to full liquid diet and advance as tolerated to regular diet Additional Plan Discussed with patient updated with her condition and plan of care. I answered all questions. Discussed with Dr. Morales who was also present at the bedside, patient has been hemodynamically stable, hemoglobin has been stable. OBGYN to transfer the patient to the unit today. PICC line was inserted on 01/12/2021 due to venous insufficiency Code status: Full code Critical care time spent: 32 minutes This dictation may have been done utilizing a voice recognition system. Attempts have been made to correct errors. However, there may be uncorrected grammatical, spelling, and recognition errors present. Due to a high probability of clinically significant, life threatening deterioration, the patient required my highest level of preparedness to intervene emergently and I personally spent this critical care time directly and personally managing the patient. This critical care time included obtaining a history; examining the patient; pulse oximetry; ordering and review of studies; arranging urgent treatment with development of a management plan; evaluation of patient's response to treatment; frequent reassessment; and discussions with other providers. It was exclusive of separately billable procedures and treating other patients and teaching time. Please see Assessment and Plan section and the rest of the note for further information on patient assessment and treatment Subjective Date/time seen: 01/13/21 12:46 Interval history: Reason for consult: Hypotension, shock, tachycardia status post Total abdominal hysterectomy with bilateral salpingectomy and right oophorectomy on 01/11/2021 01/13/2021: Patient seen and exa
[2021-01-13] MEDS: POTASSIUM CHLORIDE 20 MEQ TABLET 40 MEQ PO (12:53)
[2021-01-13] MEDS: SODIUM CHLORIDE 0.9% IV 1,000 ML 75 ML IV CONT (12:54)
--- NOTE | 2021-01-13 12:55 | PM.GYNPNOP ---
CARGO SURVEYOR - A/P Assessment and plan (1) Anemia due to acute blood loss: Code(s): D62 - Acute posthemorrhagic anemia Status: Acute (2) Complication of cystostomy: Code(s): N99.518 - Other cystostomy complication Status: Acute (3) History of total abdominal hysterectomy: Onset Date: 01/11/21 Code(s): Z90.710 - Acquired absence of both cervix and uterus Status: Acute (4) Postoperative hemorrhagic shock: Qualifiers: Encounter type: initial encounter Qualified Code(s): T81.19XA - Other postprocedural shock, initial encounter Code(s): T81.19XA - Other postprocedural shock, initial encounter Status: Acute (5) Leiomyoma: Code(s): D21.9 - Benign neoplasm of connective and other soft tissue, unspecified Status: Acute Assessment and Plan: This patient is a 40-year-old female who is 2 days postoperative from a total abdominal hysterectomy and right salpingo-oophorectomy with incidental cystotomy. She is tolerating p.o., she has bowel sounds. Her abdominal exam is consistent with Normal recovery from large abdominal incision. She has reasonable urine output. She is mildly tachycardic but this has been coming down over last 24 hours. She received several units of blood. Her hemoglobin is now stable after equilibration. transfer patient out of ICU. Postoperative Procedures: Procedures Operation Date: 01/11/21 07:30 Actual Procedure Side Surgeon p Total Abdominal Hysterectomy, Bilateral Salpingectomy, Right Oophorectomy Bilateral Taylor Hall MD Time Spent With Patient Time: Total time spent is greater than 50% in coordination of care (as documented) at patient's floor/unit and/or counseling patient: Time with patient: 15 - 25 minutes CARGO SURVEYOR- PN:Subj Post-Op Subjective Date/time seen: 01/13/21 12:55 Tolerating p.o., denies fevers or chills. Subjective: patient reports feeling better, patient has no complaints and pain is well controlled Exam Const: General: healthy appearing, comfortable and no acute distress Resp: Auscultation: clear to auscultation bilaterally, no rales, no rhonchi and no wheezes Cardio: Rate: regular rate Heart sounds: no click, no murmurs and no rubs GI: Inspection: non-distended Auscultation: normal bowel sounds Other: Incision is clean dry and intact. Extrem: General: normal to inspection, no pedal edema and no calf tenderness CARGO SURVEYOR - PN: Obj Data Vital Signs Vital Signs: Vital Signs - 24 hr 01/12/21 14:00 01/12/21 16:00 01/12/21 18:00 Temperature 97.7 F Pulse Rate 114 H 112 H 110 H Respiratory Rate 21 H 21 H 18 Blood Pressure 135/82 112/83 112/64 Pulse Oximetry 97 97 95 01/12/21 20:00 01/12/21 20:49 01/12/21 21:03 Temperature 99.0 F 99 F 99.3 F Pulse Rate 108 H 108 H 118 H Respiratory Rate 19 31 H 28 H Blood Pressure 105/75 113/57 L 110/53 L Pulse Oximetry 93 95 96 01/12/21 22:00 01/12/21 22:03 01/12/21 23:03 Temperature 98.6 F 99.0 F Pulse Rate 117 H 118 H 113 H Respiratory Rate 23 H 23 H 20 Blood Pressure 106/58 L 106/58 L 103/63 Pulse Oximetry 95 95 99 01/12/21 23:15 01/12/21 23:24 01/13/21 00:00 Temperature 99.0 F 99 F Pulse Rate 112 H 113 H Respiratory Rate 24 H 18 Blood Pressure 102/64 108/58 L Pulse Oximetry 96 97 92 01/13/21 02:00 01/13/21 04:00 01/13/21 06:00 Temperature 99.5 F Pulse Rate 119 H 114 H 122 H Respiratory Rate 29 H 20 22 H Blood Pressure 119/69 103/66 113/59 L Pulse Oximetry 92 98 96 01/13/21 08:00 01/13/21 10:00 01/13/21 12:00 Temperature 97.8 F 97.6 F 97.6 F Pulse Rate 106 H 106 H 105 H Respiratory Rate 17 18 17 Blood Pressure 93/58 L 119/57 L 117/67 Pulse Oximetry 95 96 97 Intake/Output Intake/Output: Intake & Output 01/10/21 01/11/21 01/12/21 01/13/21 23:59 23:59 23:59 23:59 Intake Total 7700 4350 590 Output Total 100 1225 2750 Balance 7600 3125 -2160 Meds/Results Medications: Active Medications Generic Name Do
[2021-01-13] MEDS: SODIUM PHOSPHATE 20 MM in DEXTROSE 5% IN WATER 250 ML 50 MM IVPB (13:07)
[2021-01-13] MEDS: fentaNYL CITRATE INJ (*CRX) 100 MCG/2 ML VIAL 50 MCG IV PUSH (14:50)
--- NOTE | 2021-01-13 15:32 | PC.NURSE ---
Patient arrived on the unit per bed from the ICU, patient transferred per maxi air with the the [address] Pt. tolerated well and was orientated to room. Bed in low position and locked, call light within reach.
--- NOTE | 2021-01-13 15:59 | PC.NURSE ---
This patient, Lobito Martin, was transferred to [facility] on 01/13/21 at 1515. Personal belongings sent with patient. Report given to Peace CARTER. Appropriate documentation sent with patient.
--- NOTE | 2021-01-13 16:10 | PC.NURSE ---
Lab called stating that the patient was due for labs at 1400 and they needed to be drawn, she stated that the patient had a PICC line in and that the labs could be drawn from it. I told her that we do not draw labs from the PICC line on this floor and that I would need her to come draw them, she stated that she would be up to the floor shortly to see if she could draw the labs.
--- NOTE | 2021-01-13 17:30 | PC.NURSE ---
ICU nurse here to draw labs.
[2021-01-13 17:35] LABS: Hematocrit 27.2 % (37.0-47.0)
--- NOTE | 2021-01-13 17:55 | PM.IMPN ---
Progress Note: A&P Assessment and Plan (1) Postoperative hemorrhagic shock: Qualifiers: Encounter type: initial encounter Qualified Code(s): T81.19XA - Other postprocedural shock, initial encounter Code(s): T81.19XA - Other postprocedural shock, initial encounter Status: Acute Assessment and Plan: 01/13/21 17:55 patient is a 40-year-old female status post abdominal hysterectomy during surgery patient lost close to 3 L of blood and became hypertension and was in shock patient was brought to ICU patient was given 2 units of pack RBC and received IV bolus this has improved patient blood pressure, currently patient is clinically stable, patient seen by OBGYN and will transfer patient back to the [facility]. 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 This was discussed with OBGYN -patient received an additional unit of packed RBC overnight. -hemoglobin stable this morning, (4) DVT prophylaxis: Code(s): Z29.9 - Encounter for prophylactic measures, unspecified Status: Acute Assessment and Plan: SCDs -hold Lovenox for now since patient is anemic and dropped her hemoglobin post surgery (5) Dietary counseling and surveillance: Code(s): Z71.3 - Dietary counseling and surveillance Status: Acute Assessment and Plan: Will increase to full liquid diet and advance as tolerated to regular diet Subjective Date/time seen: 01/13/21 17:55 patient is a 40-year-old female status post abdominal hysterectomy during surgery patient lost close to 3 L of blood and became hypertension and was in shock patient was brought to ICU patient was given 2 units of pack RBC and received IV bolus this has improved patient blood pressure, currently patient is clinically stable, patient seen by OBGYN and will transfer patient back to the [facility]. Review of Systems Review of Systems: All systems reviewed & are unremarkable except as noted in HPI and below Exam Narrative: morbidly obese Patient is comfortable, NAD HEENT: eyes are clear and none icteric LUNGS: normal respiratory effort ABD: obese and distended Lower extremities: no edema SKIN: nonjaundiced Neuro: grossly intact. Objective Data Vital Signs Vital Signs: Vital Signs - 24 hr 01/12/21 18:00 01/12/21 20:00 01/12/21 20:49 Temperature 99.0 F 99 F Pulse Rate 110 H 108 H 108 H Respiratory Rate 18 19 31 H Blood Pressure 112/64 105/75 113/57 L Pulse Oximetry 95 93 95 01/12/21 21:03 01/12/21 22:00 01/12/21 22:03 Temperature 99.3 F 98.6 F Pulse Rate 118 H 117 H 118 H Respiratory Rate 28 H 23 H 23 H Blood Pressure 110/53 L 106/58 L 106/58 L Pulse Oximetry 96 95 95 01/12/21 23:03 01/12/21 23:15 01/12/21 23:24 Temperature 99.0 F 99.0 F Pulse Rate 113 H 112 H Respiratory Rate 20 24 H Blood Pressure 103/63 102/64 Pulse Oximetry 99 96 97 01/13/21 00:00 01/13/21 02:00 01/13/21 04:00 Temperature 99 F 99.5 F Pulse Rate 113 H 119 H 114 H Respiratory Rate 18 29 H 20 Blood Pressure 108/58 L 119/69 103/66 Pulse Oximetry 92 92 98 01/13/21 06:00 01/13/21 08:00 01/13/21 10:00 Temperature 97.8 F 97.6 F Pulse Rate 122 H 106 H 106 H Respiratory Rate 22 H 17 18 Blood Pressure 113/59 L 93/58 L 119/57 L Pulse Oximetry 96 95
[2021-01-13] MEDS: GENTAMICIN SULFATE INJ 450 MG in DEXTROSE 5% 100 ML 100 MG IVPB (21:06)
[2021-01-14] VITALS: BP 138/87; PULSE 103; RESP 18; TEMP 37.2; O2SAT 99
[2021-01-14 02:30] VITALS: O2SAT 98
[2021-01-14 04:00] VITALS: BP 129/77; PULSE 98; RESP 18; TEMP 37.2; O2SAT 100
[2021-01-14] MEDS: HYDROcodone/acetaminophen (*CRX) 5-325 MG TABLET 1 TAB PO (04:00)
[2021-01-14] MEDS: CENTRAL LINE FLUSH 10 ML IV PUSH ×2 (05:14→21:19)
[2021-01-14 08:10] VITALS: BP 112/72; PULSE 94; RESP 18; TEMP 36.6; O2SAT 99
--- NOTE | 2021-01-14 08:21 | PM.GYNPNOP ---
EPIC WILLOW SPECIALIST - A/P Assessment and plan (1) Anemia due to acute blood loss: Code(s): D62 - Acute posthemorrhagic anemia Status: Acute (2) Complication of cystostomy: Code(s): N99.518 - Other cystostomy complication Status: Acute (3) History of total abdominal hysterectomy: Onset Date: 01/11/21 Code(s): Z90.710 - Acquired absence of both cervix and uterus Status: Acute (4) Leiomyoma: Code(s): D21.9 - Benign neoplasm of connective and other soft tissue, unspecified Status: Acute Assessment and Plan: POD#3 ALLISON - stable out of ICU, DVT prophlaxis, to start PT, Leiomyoma, tolerating solids Postoperative Procedures: Procedures Operation Date: 01/11/21 07:30 Actual Procedure Side Surgeon p Total Abdominal Hysterectomy, Bilateral Salpingectomy, Right Oophorectomy Bilateral Taylor Hall MD Time Spent With Patient Time: Total time spent is greater than 50% in coordination of care (as documented) at patient's floor/unit and/or counseling patient: Time with patient: 15 - 25 minutes EPIC WILLOW SPECIALIST- PN:Subj Post-Op Subjective Date/time seen: 01/14/21 08:21 Out of ICU, Stable, No compaints, No SOB, No CP, No leg pain, Not ambulating, No vaginal bleeding. Tollerating PO Exam Const: General: healthy appearing, comfortable and no acute distress Resp: Auscultation: clear to auscultation bilaterally, no rales, no rhonchi and no wheezes Cardio: Rate: regular rate Heart sounds: no click, no murmurs and no rubs GI: Inspection: non-distended Auscultation: normal bowel sounds Other: Binder and well applied dry bandage Extrem: General: normal to inspection, no pedal edema and no calf tenderness EPIC WILLOW SPECIALIST - PN: Obj Data Vital Signs Vital Signs: Vital Signs - 24 hr 01/13/21 10:00 01/13/21 12:00 01/13/21 16:00 Temperature 97.6 F 97.6 F 100.2 F H Pulse Rate 106 H 105 H 118 H Respiratory Rate 18 17 16 Blood Pressure 119/57 L 117/67 96/72 L Pulse Oximetry 96 97 95 01/13/21 17:18 01/13/21 19:00 01/13/21 20:00 Temperature 99.5 F 99.9 F H 99.2 F Pulse Rate 109 H Respiratory Rate 18 Blood Pressure 130/83 Pulse Oximetry 98 01/13/21 21:13 01/14/21 00:00 01/14/21 02:30 Temperature 98.1 F 98.9 F Pulse Rate 103 H Respiratory Rate 18 Blood Pressure 138/87 Pulse Oximetry 98 99 98 01/14/21 04:00 Temperature 99.0 F Pulse Rate 98 Respiratory Rate 18 Blood Pressure 129/77 Pulse Oximetry 100 Intake/Output Intake/Output: Intake & Output 01/11/21 01/12/21 01/13/21 01/14/21 23:59 23:59 23:59 23:59 Intake Total 7700 4350 1547.92 150 Output Total 100 1225 7150 450 Balance 7600 3125 -5602.08 -300 Meds/Results Medications: Active Medications Generic Name Dose Route Start Last Admin Trade Name Freq PRN Reason Stop Dose Admin Hydrocodone Bitart/Acetaminophen 1 tab 01/11/21 14:51 01/14/21 04:00 Hydrocodone/Acetaminophen (*Crx) 5-325 Mg Tablet PO 1 tab Q4H PRN Administration Pain Rated 1-3 Hydrocodone Bitart/Acetaminophen 1 tab 01/11/21 14:51 01/13/21 04:40 Hydrocodone/Acetaminophen (*Crx) 10-325 Mg Tablet PO 1 tab Q6H PRN Administration Pain Rated 4-6 Diphenhydramine HCl 25 mg 01/11/21 14:51 Diphenhydramine Hcl Inj 50 Mg/Ml Vial IV PUSH Q6H PRN Itching Enoxaparin Sodium 40 mg 01/12/21 09:00 01/12/21 09:28 Enoxaparin 40 Mg/0.4 Ml Syringe SUB-Q Not Given DAILY TOMY Fentanyl Citrate 50 mcg 01/12/21 07:57 01/13/21 14:50 Fentanyl Citrate Inj (*Crx) 100 Mcg/2 Ml Vial IV PUSH 50 mcg Q2H PRN Administration Pain Rated 7-10 Cefazolin Sodium 1 gm in 50 mls @ 100 mls/hr 01/11/21 20:00 01/14/21 04:30 Ancef 1 Gm/D5w 50 Ml Pm IVPB Infused Q8H TOMY Infusion Gentamicin Sulfate 450 mg/ 111.25 mls @ 100 mls/hr 01/13/21 21:00 01/13/21 22:13 Dextrose IVPB Infused Q24H TOMY Infusion Sodium Chloride 1,000 mls @ 75 mls/hr 01/13/21 12:25 01/13/21 12:54 Normal Saline Iv IV CONT
[2021-01-14] MEDS: ENOXAPARIN 40 MG/0.4 ML SYRINGE SUB-Q (09:19)
[2021-01-14 12:15] VITALS: BP 129/74; PULSE 100; RESP 16; TEMP 36.8; O2SAT 95
[2021-01-14] MEDS: SODIUM CHLORIDE 0.9% IV 100 ML 30 ML (13:26)
--- NOTE | 2021-01-14 17:11 | PM.IMPN ---
Progress Note: A&P Assessment and Plan (1) Postoperative hemorrhagic shock: Qualifiers: Encounter type: initial encounter Qualified Code(s): T81.19XA - Other postprocedural shock, initial encounter Code(s): T81.19XA - Other postprocedural shock, initial encounter Status: Acute Assessment and Plan: 01/14/21 17:11 01/13patient is a 40-year-old female status post abdominal hysterectomy during surgery patient lost close to 3 L of blood and became hypertension and was in shock patient was brought to ICU patient was given 2 units of pack RBC and received IV bolus this has improved patient blood pressure, currently patient is clinically stable, patient seen by OBGYN and will transfer patient back to the [facility]. 01/14 patient is out of ICU now in [facility], denies any abdominal pain nausea or vomiting fever or chills, denies any bleeding, her hemoglobin is stable, patient is seen by her musical string maker and appreciate, will continue to monitor. (2) History of total abdominal hysterectomy: Onset Date: 01/11/21 Code(s): Z90.710 - Acquired absence of both cervix and uterus Status: Acute Assessment and Plan: patient clinically stable seen by OBGYN and grommet worker appreciate (3) Anemia due to acute blood loss: Code(s): D62 - Acute posthemorrhagic anemia Status: Acute Assessment and Plan: Anemia due to blood loss post surgery as above -received 2 units of packed RBCs in the OR on 01/11/2021 -currently receiving 2 more units of packed RBCs in the ICU -check H/H q.6 hours and transfuse as required -if hemoglobin continues to drop despite of transfusion, will obtain CT scan of the abdomen and pelvis. This was discussed with OBGYN -patient received an additional unit of packed RBC overnight. -hemoglobin stable this morning, (4) DVT prophylaxis: Code(s): Z29.9 - Encounter for prophylactic measures, unspecified Status: Acute Assessment and Plan: SCDs -hold Lovenox for now since patient is anemic and dropped her hemoglobin post surgery (5) Dietary counseling and surveillance: Code(s): Z71.3 - Dietary counseling and surveillance Status: Acute Assessment and Plan: Will increase to full liquid diet and advance as tolerated to regular diet Subjective Date/time seen: 01/14/21 17:11 01/13patient is a 40-year-old female status post abdominal hysterectomy during surgery patient lost close to 3 L of blood and became hypertension and was in shock patient was brought to ICU patient was given 2 units of pack RBC and received IV bolus this has improved patient blood pressure, currently patient is clinically stable, patient seen by OBGYN and will transfer patient back to the [facility]. 01/14 patient is out of ICU now in [facility], denies any abdominal pain nausea or vomiting fever or chills, denies any bleeding, her hemoglobin is stable, patient is seen by her musical string maker and appreciate, will continue to monitor. Review of Systems Review of Systems: All systems reviewed & are unremarkable except as noted in HPI and below Exam Narrative: morbidly obese Patient is comfortable, NAD HEENT: eyes are clear and none icteric LUNGS: normal respiratory effort ABD: obese and distended Lower extremities: no edema SKIN: nonjaundiced Neuro: grossly intact. Objective Data Vital Signs Vital Signs: Vital Signs - 24 hr 01/13/21 17:18 01/13/21 19:00 01/13/21 20:00 Temperature 99.5 F 99.9 F H 99.2 F Pulse Rate 109 H Respiratory Rate 18 Blood Pressure 130/83 Pulse Oximetry 98 01/13/21 21:13 01/14/21 00:00 01/14/21 02:30 Temperature 98.1 F 98.9 F Pulse Rate 103 H Respiratory Rate 18 Blood Pressure 138/87 Pulse Oximetry 98 99 98 01/14/21 04:00 01/14/21 08:10 01/14/21 12:15 Temperature 99.0 F 97.8 F 98.2 F Pulse Rate 98 94 100 Respiratory Rate 18 18 16 Blood Pressure 129/77 112/72 129/74 Pulse Oximetry 10
[2021-01-14] MEDS: HYDROcodone/acetaminophen (*CRX) 10-325 MG TABLET 1 TAB PO (19:10)
[2021-01-14 20:00] VITALS: BP 129/61; PULSE 110; RESP 18; TEMP 37.2; O2SAT 100
[2021-01-14] MEDS: GENTAMICIN SULFATE INJ 450 MG in DEXTROSE 5% 100 ML 100 MG IVPB (21:07)
[2021-01-15 05:16] LABS: Estimated CRCL calculation 147 ml/min; Estimated Glomerular Filt Rate > 60
[2021-01-15 08:40] VITALS: BP 123/62; PULSE 110; RESP 24; TEMP 37.1; O2SAT 100
[2021-01-15] MEDS: HYDROcodone/acetaminophen (*CRX) 5-325 MG TABLET 1 TAB PO (09:15)
[2021-01-15] MEDS: ENOXAPARIN 40 MG/0.4 ML SYRINGE SUB-Q (09:15)
--- NOTE | 2021-01-15 11:28 | PM.IMPN ---
Progress Note: A&P Assessment and Plan (1) Postoperative hemorrhagic shock: Qualifiers: Encounter type: initial encounter Qualified Code(s): T81.19XA - Other postprocedural shock, initial encounter Code(s): T81.19XA - Other postprocedural shock, initial encounter Status: Acute Assessment and Plan: 01/14/21 17:11 01/13patient is a 40-year-old female status post abdominal hysterectomy during surgery patient lost close to 3 L of blood and became hypertension and was in shock patient was brought to ICU patient was given 2 units of pack RBC and received IV bolus this has improved patient blood pressure, currently patient is clinically stable, patient seen by OBGYN and will transfer patient back to the [facility]. 01/14 patient is out of ICU now in [facility], denies any abdominal pain nausea or vomiting fever or chills, denies any bleeding, her hemoglobin is stable, patient is seen by her electrical and instrumentation manager and appreciate, will continue to monitor. JANUARY 15. MEDICALLY STABLE FOR DISCHARGE. SHE MAY RESUME HER HYDROCHLOROTHIAZIDE ON JANUARY 16. (2) History of total abdominal hysterectomy: Onset Date: 01/11/21 Code(s): Z90.710 - Acquired absence of both cervix and uterus Status: Acute Assessment and Plan: patient clinically stable seen by OBGYN and stock room manager ronda (3) Anemia due to acute blood loss: Code(s): D62 - Acute posthemorrhagic anemia Status: Acute Assessment and Plan: Anemia due to blood loss post surgery as above -received 2 units of packed RBCs in the OR on 01/11/2021 -currently receiving 2 more units of packed RBCs in the ICU -check H/H q.6 hours and transfuse as required -if hemoglobin continues to drop despite of transfusion, will obtain CT scan of the abdomen and pelvis. This was discussed with OBGYN -patient received an additional unit of packed RBC overnight. -hemoglobin stable this morning, (4) DVT prophylaxis: Code(s): Z29.9 - Encounter for prophylactic measures, unspecified Status: Acute Assessment and Plan: SCDs -hold Lovenox for now since patient is anemic and dropped her hemoglobin post surgery (5) Dietary counseling and surveillance: Code(s): Z71.3 - Dietary counseling and surveillance Status: Acute Assessment and Plan: Will increase to full liquid diet and advance as tolerated to regular diet Subjective Date/time seen: 01/15/21 11:28 Interval history: Patient is seen on January 15. Doing well status post total abdominal hysterectomy followed by postoperative hemorrhagic anemia with hypotension. No further bleeding. No orthostatic symptoms. Tolerated oatmeal for breakfast. Up and about independently. Bowels have moved. No nausea vomiting. No chest pain or shortness of breath. No swelling. Only pain is incisional. Review of Systems Review of Systems: All systems reviewed & are unremarkable except as noted in HPI and below Exam Narrative: HEENT: PERRL, sclerae nonicteric, pharyngeal mucosa pink and intact NECK: No JVD, adenopathy, or thyromegaly CHEST: Clear to auscultation. Normal effort. HEART: NL S1/S2, regular, no murmur ABDOMEN: BS+, soft, TENDER AROUND INCISION, no mass, no bruits EXTREMITIES: No cyanosis, edema, or clubbing NEUROLOGIC: CN intact and symmetric to inspection. MUSCULOSKELETAL: Tone and strength symmetric. PSYCH: Alert. Oriented to person, place, and time. Objective Data Vital Signs Vital Signs: Vital Signs - 24 hr 01/14/21 12:15 01/14/21 20:00 Temperature 98.2 F 99.0 F Pulse Rate 100 110 H Respiratory Rate 16 18 Blood Pressure 129/74 129/61 Pulse Oximetry 95 100 Intake/Output Intake/Output: Intake & Output 01/12/21 01/13/21 01/14/21 01/15/21 23:59 23:59 23:59 23:59 Intake Total 4350 1547.92 2561 850 Output Total 1225 7150 2350 2800 Balance 8487 -5102.08 211 -1950 Meds/Results Medications: Active Medications Generic Name Dose Rout
[2021-01-15 11:51] LABS: Basophils Percent Auto 0.2 % (0.2-1.2); Eosinophils Absolute Auto 0.3 K/mm3 (0-0.3); Eosinophils Percent Auto 3.3 % (0-4.4); Hematocrit 25.6 % (37.0-47.0); Hemoglobin 8.3 g/dL (12.0-15.0); Immature Granulocyte Absolute 0.04 K/mm3 (0.00-0.031); Immature Granulocyte Percent A 0.4 % (0-0.5); Lymphocytes Absolute Auto 2.21 K/mm3 (0.9-3.2); Lymphocytes Percent Auto 21.7 % (18.3-44.2); Mean Corpuscular HGB Conc 32.4 g/dl (32-36); Mean Corpuscular Hemoglobin 29.2 pg (26-34); Mean Corpuscular Volume 90.1 fl (80-100); Mean Platelet Volume 9.2 fl (7.4-10.4); Monocytes Absolute Auto 0.8 K/mm3 (0.1-0.6); Monocytes Percent Auto 8.1 % (2.6-8.5); Neutrophils Absolute Auto 6.8 K/mm3 (1.3-6.7); Neutrophils Percent Auto 66.3 % (45.5-73.1); Platelet Count Result 213 k/mm3 (150-375); Red Blood Count 2.84 M/mm3 (4.2-5.4); Red Cell Distribution Width 14.5 % (11.5-14.5); White Blood Count 10.2 K/mm3 (4.5-10.0)
--- NOTE | 2021-01-15 11:52 | PM.GYNPNOP ---
PIPE LAYER - A/P Assessment and plan (1) Anemia due to acute blood loss: Code(s): D62 - Acute posthemorrhagic anemia Status: Acute (2) DVT prophylaxis: Code(s): Z29.9 - Encounter for prophylactic measures, unspecified Status: Acute (3) Complication of cystostomy: Code(s): N99.518 - Other cystostomy complication Status: Acute (4) History of total abdominal hysterectomy: Onset Date: 01/11/21 Code(s): Z90.710 - Acquired absence of both cervix and uterus Status: Acute (5) Postoperative hemorrhagic shock: Qualifiers: Encounter type: initial encounter Qualified Code(s): T81.19XA - Other postprocedural shock, initial encounter Code(s): T81.19XA - Other postprocedural shock, initial encounter Status: Acute (6) Leiomyoma: Code(s): D21.9 - Benign neoplasm of connective and other soft tissue, unspecified Status: Acute Assessment and Plan: This patient is a 40-year-old female who is postop day 4 from a total abdominal hysterectomy with right salpingo-oophorectomy. Her uterus weighed 2.5 kg. She received approximately 5 units packed red blood cells. She was hypotensive had severely anemic. She has been recessed stated completely. She is ambulating, tolerating p.o., moving well. She is a patient with class 3 obesity. She has been receiving antibiotics. Were quickly going to check a CBC before she is discharged today. She has been seen by physical therapy. She is ready to go by their account. Postoperative Procedures: Procedures Operation Date: 01/11/21 07:30 Actual Procedure Side Surgeon p Total Abdominal Hysterectomy, Bilateral Salpingectomy, Right Oophorectomy Bilateral Taylor Hall MD Time Spent With Patient Time: Total time spent is greater than 50% in coordination of care (as documented) at patient's floor/unit and/or counseling patient: Time with patient: 15 - 25 minutes PIPE LAYER- PN:Mey Post-Op Subjective Date/time seen: 01/15/21 11:52 Interval history: Patient is seen on January 15. Doing well status post total abdominal hysterectomy followed by postoperative hemorrhagic anemia with hypotension. No further bleeding. No orthostatic symptoms. Tolerating PO. Up and about independently. Bowels have moved. No nausea vomiting. No chest pain or shortness of breath. No swelling. Only pain is incisional. Exam Const: General: healthy appearing, comfortable and no acute distress Resp: Auscultation: clear to auscultation bilaterally, no rales, no rhonchi and no wheezes Cardio: Rate: regular rate Heart sounds: no click, no murmurs and no rubs GI: Inspection: non-distended Auscultation: normal bowel sounds Extrem: General: normal to inspection, no pedal edema and no calf tenderness PIPE LAYER - PN: Obj Data Vital Signs Vital Signs: Vital Signs - 24 hr 01/14/21 12:15 01/14/21 20:00 Temperature 98.2 F 99.0 F Pulse Rate 100 110 H Respiratory Rate 16 18 Blood Pressure 129/74 129/61 Pulse Oximetry 95 100 Intake/Output Intake/Output: Intake & Output 01/12/21 01/13/21 01/14/21 01/15/21 23:59 23:59 23:59 23:59 Intake Total 4350 1547.92 2561 850 Output Total 1225 7150 2350 2800 Balance 3125 -5602.08 211 -1950 Meds/Results Medications: Active Medications Generic Name Dose Route Start Last Admin Trade Name Freq PRN Reason Stop Dose Admin Hydrocodone Bitart/Acetaminophen 1 tab 01/11/21 14:51 01/15/21 09:15 Hydrocodone/Acetaminophen (*Crx) 5-325 Mg Tablet PO 1 tab Q4H PRN Administration Pain Rated 1-3 Hydrocodone Bitart/Acetaminophen 1 tab 01/11/21 14:51 01/14/21 19:10 Hydrocodone/Acetaminophen (*Crx) 10-325 Mg Tablet PO 1 tab Q6H PRN Administration Pain Rated 4-6 Diphenhydramine HCl 25 mg 01/11/21 14:51 Diphenhydramine Hcl Inj 50 Mg/Ml Vial IV PUSH Q6H PRN Itching Enoxaparin Sodium 40 mg 01/14/21 09:00 01/15/21 09:15 Enoxaparin 40 Mg/0.4 Ml Syringe SUB-Q
--- NOTE | 2021-01-15 11:55 | PM.DS ---
DS: Admitting Diagnosis Admitting Diagnosis Large uterine myoma DS: Discharge Diagnosis Discharge Diagnosis (1) Anemia due to acute blood loss: Code(s): D62 - Acute posthemorrhagic anemia Status: Acute (2) Complication of cystostomy: Code(s): N99.518 - Other cystostomy complication Status: Acute (3) History of total abdominal hysterectomy: Onset Date: 01/11/21 Code(s): Z90.710 - Acquired absence of both cervix and uterus Status: Acute (4) Postoperative hemorrhagic shock: Qualifiers: Encounter type: initial encounter Qualified Code(s): T81.19XA - Other postprocedural shock, initial encounter Code(s): T81.19XA - Other postprocedural shock, initial encounter Status: Acute (5) Leiomyoma: Code(s): D21.9 - Benign neoplasm of connective and other soft tissue, unspecified Status: Acute DS: Summary Hospital Course Hospital Course: this patient is 40-year-old female with a 2.5 kg uterus. She underwent total abdominal hysterectomy right salpingo-oophorectomy. She lost approximately 3 L of blood during the surgery. She received 5 units of packed red blood cells after the surgery. She was hypotensive during the surgery. The blood loss was essentially unavoidable in this massive uterus that was full of venous Sinuses. She was observed in the ICU for 2 days. She was stable throughout that time. She was afebrile throughout her stay. The surgery was successful, there was a cystotomy that was a result of a densely adherent bladder to the lower uterine segment/ cervix. She will have a De La O catheter for 3 more days and have a cystogram performed Prior to removal. she was seen by PT her last 2 days in the hospital. She was given instructions on how to move better with less pain. They considered her ready to be discharged on the 2nd day they saw her. She looks well. She had 4 hospital days. And throughout that time she was making appropriate progress with diet, movement, vital signs, cognitive function, Gastrointestinal function. she was discharged home on postoperative day 4. She will follow up in 3 days. Status at Discharge Cognitive/behavioral status at discharge: Excellent Overall status at discharge: patient is progressing back to baseline Time Spent with Patient Time attestation: Total time spent providing and/or coordinating discharge services:28min Time spent: Greater than 30 minutes DS: Data Data Completed and Pending Completed studies during hospitalization: Pending at discharge 01/11/21 13:49 Surgical [PTH] Routine Labs on day of discharge: Labs from last 24 hours 01/15/21 01/15/21 01/15/21 11:39 11:39 03:59 WBC 10.2 H RBC 2.84 L Hgb 8.3 L Hct 25.6 L MCV 90.1 MCH 29.2 MCHC 32.4 RDW 14.5 Plt Count 213 D MPV 9.2 Immature Gran % (Auto) 0.4 Neut % (Auto) 66.3 Lymph % (Auto) 21.7 [place] % (Auto) 8.1 Eos % (Auto) 3.3 Baso % (Auto) 0.2 Lymph # (Auto) 2.21 [place] # (Auto) 0.8 H Eos # (Auto) 0.3 Baso # (Auto) 0.0 Abs Immat Gran (auto) 0.04 H Absolute Neuts (auto) 6.8 H Absolute Nucleated RBC 0.0 Nucleated RBC % 0.0 Creatinine 0.60 L Estim Creat Clear Calc 147 Estimated GFR > 60 Random Gentamicin Pending Discharge Plan Discharge Attending physician on discharge: Valreie Morales Consulting providers: Bro Youssef ; Ashanti Paez ; Discharging Clinician: Valerie Morales Patient Disposition: Home, Self-Care Activity: pelvic rest Diet: regular Patient Instructions: Antibiotic Form Stand Alone Forms: General Discharge Information Follow-up/Referrals: Valerie Morales MD [Physician] - Taylor Hall MD [Physician] - Discharge Medications: New hydrocodone-acetaminophen 5-325 mg tablet 1 - 2 tablet PO Q4H PRN (Reason: pain) Qty: 25 RF: 0 Continued hydrochlorothiazide 25 mg tablet 25 mg PO DAILY
[2021-01-15 12:23] LABS: Gentamicin Random 0.9 ug/mL (5.0-12.0)
== END 2021-01-15 17:04 | disposition home or self-care (01) | DRG 742 ==
LOC: ANHSURGERY 15:34 → ANHIMU 15:54 → ANHICU 21:15 → ANHOB2 01-14 14:54 → ANHICU 01-17 15:29 → ANHOB2 01-17 15:29
PROVIDERS: Anesthesiology; Internal Medicine; Admitting Provider Obstetrics & Gynecology; Visit Provider Obstetrics & Gynecology
PROC: 0UT94ZZ Resection of Uterus, Percutaneous Endoscopic Approach (ICD-10-PCS; principal; 2021-01-11 07:30)
DX: D25.9 Leiomyoma of uterus, unspecified (principal); T81.19XA Other postprocedural shock, initial encounter; Z68.43 Body mass index [BMI] 50.0-59.9, adult; D62 Acute posthemorrhagic anemia; N99.71 Accidental puncture and laceration of a genitourinary system organ or structure during a genitourinary system procedure; I10 Essential (primary) hypertension; I95.81 Postprocedural hypotension; E66.01 Morbid (severe) obesity due to excess calories; Y83.8 Other surgical procedures as the cause of abnormal reaction of the patient, or of later complication, without mention of misadventure at the time of the procedure
CPT/HCPCS: 36415; 36430; 36569; 71045; 74176; 80048; 80053; 80170; 82565; 83605; 83735; 84100; 85014; 85018; 85025; 85027; 85610; 85730; 86850; 86900; 86901; 86920; 88307; 93005; 97161; A9270; C1751; J0330; J0690; J1100; J1170; J1580; J1650; J1885; J2250; J2370; J2704; J2710; J3010; J3475; J7030; J7050; J7060; J7120; P9016

== ENCOUNTER 2021-01-18 10:42 | Outpatient (CLI) | payer BC, SELFPAY ==
--- NOTE | ~2021-01-18 | XR_ITS ---
XR cystogram DATE: 01/18/2021 11:20 INDICATION: Post hysterectomy cystogram TECHNIQUE: Urinary bladder fluoroscopy and multiple spot images and a postevacuation overhead image o f the urinary bladder were performed. 350 cc Omnipaque contrast material was administered to the blad katharine lumen by gravity through an existing De La O catheter. COMPARISON: None FINDINGS: No intraluminal filling defect of the urinary bladder. No extravasation of contrast materia l from the urinary bladder. No ureteral vesicle reflux. IMPRESSION: Negative examination Reviewed, dictated and finalized at [facility] Reviewed, dictated and finalized at [facility]. IMPRESSION: Negative examination
== END 2021-01-18 10:43 | disposition home or self-care (01) ==
LOC: ANHIMG 10:48
PROVIDERS: Visit Provider Obstetrics & Gynecology
DX: N99.518 Other cystostomy complication (principal)
CPT/HCPCS: 51600; 74430; Q9967

== ENCOUNTER 2025-05-29 00:31 | Day surgery (SDC) | payer BC, SELFPAY ==
[2025-05-13 13:16] VITALS: BMI 47.4
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
--- OUTSIDE RECORDS SUMMARY | 2025-05-29 00:35 | XMS_ITS | Clinical Summary ---
Author Organization [facility] Address [address] [place] [address] Care Team Providers Care Heavy Forger Name Role Phone Gurvinder Del Toro MD Primary Care Provider Allergies No known active allergies Medications hydroCHLOROthiaz malik (HYDRODIURIL) 25 mg tablet Take 25 mg by mouth daily Active telmisartan (MICARDIS) 20 mg tablet TK 1 T PO QD 11/20/2019 Active Active Problems No known active problems Medical History Medical History Date Comments Amenorrhea Menorrhagia Hypertension Hyperlipidemia Fibroid uterus Family History Medical History Relation Name Comments Breast cancer Maternal Grandmother Hypertension Maternal Grandmother Thyroid disease Maternal Grandmother Hypertension Mother Thyroid disease Mother Relation Name Status Comments Maternal Grandmother Mother Social History Tobacco Use Types Packs/Day Years Used Date Smoking Tobacco: Never Smokeless Tobacco: Never Alcohol Use Standard Drinks/Week Comments Not Currently 0 (1 standard drink = 0.6 oz pur e alcohol) PHQ-2 Answer Date Recorded PHQ-2 Score 0 05/30/2019 Personal Safety Answer Date Recorded Getting School Help Needed Not on file 08/24 Comments No Sex and Gender Information Value Date Recorded Sex Assigned at Not on file Legal Sex Female 9:17 AM [employer] Gender Identity Not on file Sexual Orientation Not on file Obstetrics History Para Term AB IAB SAB Ectopic Multiple Livin g Live Births 2 2 2 2 2 Date Outcome GA Total Labor Labor/2nd/3rd Weight Sex Type Anes PTL Zandra A1 A5 Name Clin 9 Term 2.722 kg (6 lb) F Vag-S pont N Living Complications:None 8 Term 3.26 kg (7 lb 3 oz) M Vag-S pont N Living Complications:None Last Filed Vital Signs Vital Sign Reading Time Taken Comments Blood Pressure 126/76 12/03/2019 9:35 AM CDT Pulse 85 07/03/2019 9:42 AM GRAIN ELEV[employer]OR [employer]AR[employer] Temperature - - Respiratory Rate - - Oxygen Saturation - - Inhaled Oxygen Concentration - - Weight 138.3 kg (305 lb) 12/03/2019 9:35 AM CDT Height 165.1 cm (5' 5) 12/03/2019 9:35 AM CDT Body Mass Index 50.75 12/03/2019 9:35 AM CDT Plan of Treatment Not on file Insurance [employer] [place] Care Teams Heavy Forger Relationship Specialty Start Date End Date Gurvinder Del Toro MD PCP - General Internal Medicine 05/16/19
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
[2025-05-29 07:46] VITALS: BP 152/93; PULSE 104; RESP 18; TEMP 36.6; O2SAT 99
[2025-05-29] MEDS: LACTATED RINGERS 1,000 ML 150 ML IV CONT (08:01)
--- NOTE | 2025-05-29 08:20 | WPDANESEPPF ---
Anes - Initial Pre Proc Eval Procedure: Operation Date: 05/29/25 09:00 Proposed Procedures p Screening Colonoscopy - Rogerio Talamantes MD Date/Time: 05/29/25 08:20 Surgeon: Rogerio Talamantes MD Pre Op Diagnosis: Encounter for screening for malignant neoplasm of Patient Data Age: 44 Gender: F Height: 1.65 m Weight: 128.2 kg Last Vital Signs Temp 97.9 F 05/29/25 07:46 Pulse 104 H 05/29/25 07:46 Resp 18 05/29/25 07:46 BP 152/93 H 05/29/25 07:46 Pulse Ox 99 05/29/25 07:46 O2 Del Method Room Air 05/29/25 07:46 Allergies Allergy/AdvReac Type Severity Reaction Status Date / Time No Known Allergies Allergy Verified 05/29/25 07:45 Home Medications ?Medication ?Instructions ?Recorded ?Confirmed ?Type hydrochlorothiazide 25 mg tablet 25 mg PO DAILY 01/05/21 05/13/25 History metformin 500 mg tablet 500 mg PO DAILY 05/13/25 05/13/25 History Laboratory Tests 05/29/25 07:51 POC Capillary Glucose 200 H mg/dl (65-105) Patient hx anesthesia problems: none Family hx anesthesia problems: none Results Review: All pre-operative results and documents have been reviewed as part of the pre-operative evaluation. [facility] Past Medical History Medical History Obesity, morbid, BMI 50 or higher Hypertension Surgical History Surgical History History of right oophorectomy (01/11/21) History of total abdominal hysterectomy (01/11/21) Family History Family History Mother Diabetes mellitus Mother Hypertension Grandparent Hypertension Breast cancer Sibling Schizophrenia Social History Social History Social History: She has 2 children hernia child is 13 her oldest child is in the 20s. Smoking status: Never smoker Alcohol intake: never Substance use: never Substance use type: does not use Living arrangements: with family Sexual Orientation (if Verbalized by the Patient): Straight or Heterosexual Spiritual care concerns: No Anes - Eval Final PreProcedure Day of Procedure 05/29/25 08:20 Patient weight: morbidly obese Lungs: normal air movement Airway: Mallampati scale class II Neurological: alert and oriented Last oral intake: >/= 8 hours ASA classification: III Emergent: no Anesthetic plan: proceed Anesthesia type and monitoring: general GIVS and standard monitoring Results Review: All pre-operative results and documents have been reviewed as part of the pre-operative evaluation. BMI 47, DM fsbs 200. Informed Consent: The patient's anesthetic plan and its attendant risks and benefits were discussed with the patient/family/POA. Questions were solicited and answers provided to the satisfaction of the patient/family/POA.
--- NOTE | 2025-05-29 08:31 | WPDANESEPPF ---
Anes - Initial Pre Proc Eval Procedure: Operation Date: 05/29/25 09:00 Proposed Procedures p Screening Colonoscopy - Rogerio Talamantes MD Date/Time: 05/29/25 08:31 Surgeon: Rogerio Talamantes MD Pre Op Diagnosis: Encounter for screening for malignant neoplasm of Patient Data Age: 44 Gender: F Height: 1.65 m Weight: 128.2 kg Last Vital Signs Temp 97.9 F 05/29/25 07:46 Pulse 104 H 05/29/25 07:46 Resp 18 05/29/25 07:46 BP 152/93 H 05/29/25 07:46 Pulse Ox 99 05/29/25 07:46 O2 Del Method Room Air 05/29/25 07:46 Allergies Allergy/AdvReac Type Severity Reaction Status Date / Time No Known Allergies Allergy Verified 05/29/25 07:45 Home Medications ?Medication ?Instructions ?Recorded ?Confirmed ?Type hydrochlorothiazide 25 mg tablet 25 mg PO DAILY 01/05/21 05/13/25 History metformin 500 mg tablet 500 mg PO DAILY 05/13/25 05/13/25 History Laboratory Tests 05/29/25 07:51 POC Capillary Glucose 200 H mg/dl (65-105) Patient hx anesthesia problems: none Family hx anesthesia problems: none Results Review: All pre-operative results and documents have been reviewed as part of the pre-operative evaluation. [facility] Past Medical History Medical History Obesity, morbid, BMI 50 or higher Hypertension Surgical History Surgical History History of right oophorectomy (01/11/21) History of total abdominal hysterectomy (01/11/21) Family History Family History Mother Diabetes mellitus Mother Hypertension Grandparent Hypertension Breast cancer Sibling Schizophrenia Social History Social History Social History: She has 2 children hernia child is 13 her oldest child is in the 20s. Smoking status: Never smoker Alcohol intake: never Substance use: never Substance use type: does not use Living arrangements: with family Sexual Orientation (if Verbalized by the Patient): Straight or Heterosexual Spiritual care concerns: No Anes - Eval Final PreProcedure Day of Procedure 05/29/25 08:31 Patient weight: morbidly obese Lungs: normal air movement Airway: Mallampati scale class II and special considerations (Missing 2 on the lower aspect. ) Neurological: alert and oriented Last oral intake: >/= 8 hours ASA classification: III Emergent: no Anesthetic plan: proceed Anesthesia type and monitoring: general GIVS and standard monitoring Results Review: All pre-operative results and documents have been reviewed as part of the pre-operative evaluation. DM fsbs 200, BMI 47, active without cp or sob. Informed Consent: The patient's anesthetic plan and its attendant risks and benefits were discussed with the patient/family/POA. Questions were solicited and answers provided to the satisfaction of the patient/family/POA.
--- NOTE | 2025-05-29 08:36 | PM.HPGS ---
History of Present Illness History of Present Illness Consent: Risks, benefits, and alternatives have been discussed and questions answered. Patient agrees to proceed with procedure. Chief complaint: Encounter for screening for malignant neoplasm of Narrative: Lobito Martin is a 44 year old female here for first screening colonoscopy Review of Systems Review of Systems: All systems reviewed & are unremarkable except as noted in HPI and below PMFSH Past Medical History Medical History (Updated 05/29/25 @ 08:36 by Rogerio Talamantes MD) Colon cancer screening Obesity, morbid, BMI 50 or higher Hypertension Surgical History Surgical History History of right oophorectomy (01/11/21) History of total abdominal hysterectomy (01/11/21) Family History Family History Mother Diabetes mellitus Mother Hypertension Grandparent Hypertension Breast cancer Sibling Schizophrenia Social History Social History Social History: She has 2 children hernia child is 13 her oldest child is in the 20s. Smoking status: Never smoker Alcohol intake: never Substance use: never Substance use type: does not use Living arrangements: with family Sexual Orientation (if Verbalized by the Patient): Straight or Heterosexual Spiritual care concerns: No Meds Home Medications and Allergies Home Medications ?Medication ?Instructions ?Recorded ?Confirmed ?Type hydrochlorothiazide 25 mg tablet 25 mg PO DAILY 01/05/21 05/13/25 History metformin 500 mg tablet 500 mg PO DAILY 05/13/25 05/13/25 History Allergies Allergy/AdvReac Type Severity Reaction Status Date / Time No Known Allergies Allergy Verified 05/29/25 07:45 Vital Signs Vital Signs - 24 hr 05/29/25 07:46 Temperature 97.9 F Pulse Rate 104 H Respiratory Rate 18 Blood Pressure 152/93 H Pulse Oximetry 99 Oxygen Delivery Room Air Exam Const: General: comfortable and no acute distress HENMT: Face/Nose/Sinus: Normal nares present Resp: Auscultation: clear to auscultation bilaterally Cardio: Rate: regular rate Rhythm: regular rhythm GI: Inspection: non-distended GI Palp: Yes Soft to palpation Skin: General skin exam: normal color Psych: Mental Status: mental status grossly normal Assessment and Plan Assessment and plan (1) Colon cancer screening: Code(s): Z12.11 - Encounter for screening for malignant neoplasm of colon Status: Acute Assessment and Plan: colonoscopy
[2025-05-29 08:54] VITALS: BP 131/81; PULSE 90; RESP 18; O2SAT 100
[2025-05-29 09:04] VITALS: BP 115/75; PULSE 85; RESP 18; O2SAT 100
[2025-05-29 09:14] VITALS: BP 148/86; PULSE 80; RESP 18; O2SAT 100
== END 2025-05-29 09:25 | disposition home or self-care (01) ==
PROVIDERS: Visit Provider Internal Medicine Gastroenterology
PROC: 0DJD8ZZ Inspection of Lower Intestinal Tract, Via Natural or Artificial Opening Endoscopic (ICD-10-PCS; CPT 45378; principal; 2025-05-29 09:00)
DX: Z12.11 Encounter for screening for malignant neoplasm of colon (principal); K64.8 Other hemorrhoids; I10 Essential (primary) hypertension; E11.9 Type 2 diabetes mellitus without complications; E66.01 Morbid (severe) obesity due to excess calories; Z68.42 Body mass index [BMI] 45.0-49.9, adult; Z79.84 Long term (current) use of oral hypoglycemic drugs; Z98.890 Other specified postprocedural states; Z80.3 Family history of malignant neoplasm of breast
CPT/HCPCS: 45378; 82948; J2003; J2704; J7120